=== PATIENT | female | born 1995 | race Hispanic/Latino ===

== ENCOUNTER 2022-08-27 19:30 | Inpatient (IN) | payer MEDICAID, SELFPAY ==
[2022-08-28 02:09] VITALS: BMI 28.8
[2022-08-28] MEDS: Lactated Ringer's 1,000 ML IV SCH (03:30)
[2022-08-28] MEDS ORDERED: Ondansetron PF 4 MG/2 ML Vial IVP PRN ×2 (03:47→07:52)
[2022-08-28] MEDS ORDERED: Acetaminophen 500 MG TAB PO PRN (03:47)
[2022-08-28] MEDS ORDERED: hydrALAZINE 20 MG/ML VIAL SLOW IVP PRN (03:47)
[2022-08-28 05:03] LABS: SARS-CoV-2 NAA Rapid Test Not Detected (NotDetected)
[2022-08-28 05:07] LABS: Hemoglobin 12.1 g/dL (12.0-15.5); Mean Corpuscular HGB CONC 34.2 g/dL (32.0-36.0); Mean Corpuscular Hemoglobin 30.9 pg (27.0-33.0); Mean Corpuscular Volume 90.5 fl (81.6-98.3); Mean Platelet Volume 11.7 fl (7.4-10.4); Platelet Count 214 10x3/uL (150-450); RBC Distribution Width 13.6 % (11.5-14.5); Red Blood Cell (RBC) Count 3.91 10x6/uL (3.90-5.03); White Blood Cell (WBC) Count 9.9 10x3/uL (3.5-10.5)
[2022-08-28 05:11] LABS: Syphilis Antibody Nonreactive (Nonreactive); Syphilis Antibody Index 0.09 S/CO (<1.00 Non-Reactive)
[2022-08-28 05:12] LABS: HBSAg Index 0.14 S/CO (0-0.99); Hep B Surf Ag Non-Reactive S/CO (NonReactive)
[2022-08-28] MEDS ORDERED: Carboprost 250 MCG/ML AMP IM PRN (05:33)
[2022-08-28] MEDS ORDERED: Ibuprofen 800 MG TAB PO PRN (05:33)
[2022-08-28] MEDS ORDERED: Misoprostol 200 MCG TAB PR PRN (05:33)
[2022-08-28] MEDS ORDERED: Lidocaine 1% (PF) 30 ML VIAL SC PRN (05:33)
[2022-08-28] MEDS ORDERED: Diphenoxylate HCl/Atropine Tablet PO PRN (05:33)
[2022-08-28] MEDS ORDERED: Methylergonovine 0.2 MG/ML VIAL IM PRN (05:33)
[2022-08-28] MEDS ORDERED: NS w/ Oxytocin 30 units 500 ML IV SCH ×2 (05:45)
[2022-08-28] MEDS ORDERED: Butorphanol Tartrate 1 MG/ML VIAL ONE (07:39)
[2022-08-28] MEDS ORDERED: Butorphanol Tartrate 1 MG/ML VIAL SLOW IVP PRN (07:42)
[2022-08-28] MEDS ORDERED: Fentanyl 2 mcg/Bup 0.1% Cadd 100 ML ONE (07:51)
[2022-08-28] MEDS ORDERED: Acetaminophen 325 MG TAB PO PRN (07:52)
[2022-08-28] MEDS ORDERED: diphenhydrAMINE 50 MG/ML VIAL IVP PRN (07:52)
[2022-08-28] MEDS ORDERED: Moisturizing Cream (Eucerin) 113 GM JAR TOP PRN (07:52)
[2022-08-28] MEDS ORDERED: Naloxone HCl 0.4 mg/ml Vial IVP PRN ×2 (07:52)
[2022-08-28] MEDS ORDERED: Lactated Ringer's 500 ML IV PRN (07:52)
[2022-08-28] MEDS ORDERED: ePHEDrine Sulfate 50 MG/10 ML VIAL SLOW IVP PRN (07:52)
[2022-08-28] MEDS ORDERED: Promethazine HCl 25 MG/ML VIAL IM PRN (07:52)
[2022-08-28] MEDS ORDERED: Communication Order-Pharmacy FS SCH (08:00)
[2022-08-28] MEDS ORDERED: Fentanyl 2 mcg/Bupivacaine 0.1% Cassette 100 ML EPIDURAL SCH (08:00)
[2022-08-28] MEDS ORDERED: Bupivacaine 0.25% HCL 30 ML VIAL ONE (08:22)
[2022-08-28] MEDS ORDERED: Methylergonovine 0.2 MG/ML VIAL ONE (16:15)
[2022-08-28] MEDS ORDERED: Misoprostol 200 MCG TAB ONE (16:15)
[2022-08-28 17:10] LABS: Amphetamine Not Detected (NotDetected); Barbiturates Screen Not Detected (NotDetected); Benzodiazepine Screen Not Detected (NotDetected); Cocaine Metabolite Screen Not Detected (NotDetected); Methadone Not Detected (NotDetected); Methamphetamine Detected (NotDetected); Opiate Screen Not Detected (NotDetected); Oxycodone Screen Not Detected (NotDetected); Phencyclidine (PCP) Not Detected (NotDetected); THC/Cannabinoid Screen Not Detected (NotDetected); Tricyclic Screen Not Detected (NotDetected)
[2022-08-28] MEDS ORDERED: Milk Of Magnesia 30 ML UDCUP PO PRN (18:06)
[2022-08-28] MEDS ORDERED: Boostrix 0.5 ML (Tdap) VIAL (>/=7 yrs of age) IM ONE (18:06)
[2022-08-28] MEDS ORDERED: Benzocaine-Menthol 82.5 ML CAN TOP PRN (18:06)
[2022-08-28] MEDS ORDERED: Bisacodyl 10 MG SUPP PR PRN (18:06)
[2022-08-28] MEDS ORDERED: Lanolin Ointment 7 GM TUBE TOP PRN (18:06)
[2022-08-28] MEDS: Docusate 100 MG CAP PO SCH (22:52)
[2022-08-28] MEDS: Ibuprofen 800 MG TAB PO SCH (22:52)
[2022-08-29] MEDS: Ibuprofen 800 MG TAB PO SCH ×4 (05:31→21:38)
[2022-08-29] MEDS: Docusate 100 MG CAP PO SCH ×2 (09:00→21:38)
[2022-08-29] MEDS: Prenatal Vitamin 1 TAB PO SCH (09:00)
[2022-08-29] MEDS: Acetaminophen 325 MG TAB PO SCH ×5 (10:52→21:36)
[2022-08-29] MEDS: Ferrous Sulfate 325 MG TAB PO SCH ×2 (10:53→18:04)
[2022-08-29] MEDS: Lactated Ringer's 1,000 ML IV SCH (10:59)
[2022-08-30] MEDS: Ibuprofen 800 MG TAB PO SCH (06:34)
[2022-08-30] MEDS: Acetaminophen 325 MG TAB PO SCH ×2 (08:11→12:26)
[2022-08-30] MEDS: Ferrous Sulfate 325 MG TAB PO SCH (08:11)
[2022-08-30 08:56] VITALS: BP 97/53; TEMP 97.6
[2022-08-30] MEDS: Docusate 100 MG CAP PO SCH (09:30)
[2022-08-30] MEDS: Prenatal Vitamin 1 TAB PO SCH (09:30)
== END 2022-08-30 12:55 | disposition home or self-care (01) | DRG 806 ==
LOC: UNDOADMIN 19:56 → CSHLD 19:56 → CSHPP 08-28 18:37
PROVIDERS: ADMIT Student in an Organized Health Care Education/Training Program; ATTEND Student in an Organized Health Care Education/Training Program
PROC: 10907ZC Drainage of Amniotic Fluid, Therapeutic from Products of Conception, Via Natural or Artificial Opening (ICD-10-PCS; principal; 2022-08-28)
PROC: 10E0XZZ Delivery of Products of Conception, External Approach (ICD-10-PCS; 2022-08-28)
PROC: 0KQM0ZZ Repair Perineum Muscle, Open Approach (ICD-10-PCS; 2022-08-28)
DX: O99.892 Other specified diseases and conditions complicating childbirth (principal); O72.1 Other immediate postpartum hemorrhage; Z37.0 Single live birth; R73.03 Prediabetes; Z3A.38 38 weeks gestation of pregnancy; Z20.822 Contact with and (suspected) exposure to COVID-19; O76 Abnormality in fetal heart rate and rhythm complicating labor and delivery; O70.1 Second degree perineal laceration during delivery; O69.81X0 Labor and delivery complicated by cord around neck, without compression, not applicable or unspecified
CPT/HCPCS: 36415; 36416; 51702; 80306; 85027; 86780; 86850; 86900; 86901; 87340; J0595; J2001; J2210; J7120; U0002

== ENCOUNTER 2023-10-27 00:56 | Observation (INO) | payer MEDICAID ==
[2023-10-27] MEDS ORDERED: Ondansetron PF 4 MG/2 ML Vial IVP PRN (01:18)
[2023-10-27] MEDS ORDERED: hydrALAZINE 20 MG/ML VIAL SLOW IVP PRN ×2 (01:18)
[2023-10-27] MEDS ORDERED: Ibuprofen 800 MG TAB PO PRN (01:18)
[2023-10-27] MEDS ORDERED: Lidocaine 1% (PF) 30 ML VIAL SC PRN (01:18)
[2023-10-27] MEDS ORDERED: Promethazine HCl 25 MG/ML VIAL IM PRN (01:18)
[2023-10-27 01:26] VITALS: BMI 28.2
[2023-10-27 01:46] LABS: Hematocrit 35.7 % (34.9-44.5); Mean Corpuscular HGB CONC 33.6 g/dL (32.0-36.0); Mean Corpuscular Volume 89.3 fl (81.6-98.3); Mean Platelet Volume 10.4 fl (7.4-10.4); Platelet Count 240 10x3/uL (150-450); RBC Distribution Width 14.2 % (11.5-14.5)
[2023-10-27 02:22] LABS: Syphilis Antibody Nonreactive (Nonreactive); Syphilis Antibody Index 0.11 S/CO (<1.00 Non-Reactive)
[2023-10-27 02:23] LABS: HBSAg Index 0.22 S/CO (0-0.99); Hep B Surf Ag - L&D Non-Reactive S/CO (NonReactive)
[2023-10-27] MEDS ORDERED: Bisacodyl 10 MG SUPP PR PRN (02:28)
[2023-10-27] MEDS ORDERED: Milk Of Magnesia 30 ML UDCUP PO PRN (02:28)
[2023-10-27] MEDS ORDERED: Boostrix 0.5 ML (Tdap) VIAL (>/=7 yrs of age) IM ONE (02:28)
[2023-10-27] MEDS: Acetaminophen 325 MG TAB PO SCH (03:39)
[2023-10-27] MEDS: Ibuprofen 800 MG TAB PO SCH (03:42)
[2023-10-27] MEDS ORDERED: Ibuprofen 800 MG TAB PO SCH (06:00)
[2023-10-27] MEDS: Ferrous Sulfate 325 MG TAB PO SCH (07:16)
[2023-10-27] MEDS: Docusate 100 MG CAP PO SCH (09:59)
[2023-10-27] MEDS: Oxytocin 30 units/NS 500 ML 500 ML IV SCH (10:21)
[2023-10-28 05:20] LABS: #Eosinphils 0.1 10x3/uL (0.0-0.5); #Monocytes 0.5 10x3/uL (0.0-1.1); #Neutrophils 5.6 10x3/uL (1.5-8.4); %Basophils 0.4 % (0.0-2.0); %Eosinophils 1.2 % (0.0-6.0); %Monocytes 5.6 % (0.0-10.0); %Neutrophils 62.1 % (40.0-75.0); Hematocrit 24.3 % (34.9-44.5); Hemoglobin 8.1 g/dL (12.0-15.5); Mean Corpuscular HGB CONC 33.3 g/dL (32.0-36.0); Mean Corpuscular Hemoglobin 30.8 pg (27.0-33.0); Mean Corpuscular Volume 92.4 fl (81.6-98.3); Platelet Count 176 10x3/uL (150-450); RBC Distribution Width 14.4 % (11.5-14.5); Red Blood Cell (RBC) Count 2.63 10x6/uL (3.90-5.03)
[2023-10-28 11:10] VITALS: BP 110/66; TEMP 98.7
[2023-10-28 12:07] LABS: Hematocrit 28.3 % (34.9-44.5); Hemoglobin 9.7 g/dL (12.0-15.5)
== END 2023-10-28 14:00 | disposition home or self-care (01) ==
LOC: CSHLD/OP 00:56 → INTOOBSV 01:18 → CSHLD 01:18 → CSHPP 05:16
PROVIDERS: ADMIT Obstetrics & Gynecology; ATTEND Obstetrics & Gynecology
PROC: 10D07Z6 Extraction of Products of Conception, Vacuum, Via Natural or Artificial Opening (ICD-10-PCS; principal; 2023-10-27)
DX: O80 Encounter for full-term uncomplicated delivery (principal); Z3A.38 38 weeks gestation of pregnancy; Z37.0 Single live birth; Z79.899 Other long term (current) drug therapy
CPT/HCPCS: 36415; 85025; 85027; 86780; 86850; 86900; 86901; 87340; 99285; J2590